=== PATIENT | female | born 1985 | race Caucasian/White ===

== ENCOUNTER 2019-05-10 14:15 | Outpatient (CLI) | payer OTHER ==
--- NOTE | 2019-05-10 16:42 | RAD ---
LEFT WRIST 3 VIEWS: Date: 05/10/19 HISTORY: Wrist pain. FINDINGS: Joint spaces all appear fairly well preserved. No significant arthritic change. No fractures. IMPRESSION: Unremarkable left wrist. POS: [facility]
== END 2019-05-10 14:16 | disposition home or self-care (01) ==
LOC: BICRAD 14:15
PROVIDERS: ATTEND Internal Medicine
DX: M25.532 Pain in left wrist (principal)